=== PATIENT | male | born 1960 | race Caucasian/White ===

== ENCOUNTER 2016-10-21 08:11 | Day surgery (SDC) | payer OTHER ==
[~2016-10-21] VITALS: Ht 172.7 cm; Wt 70.0 kg
[~2016-10-21 08:11] MED LIST: CEFAZOLIN 1GM IVPB FOR OMNI 50 ML IV PRN; CYCL10TA2 PO; CYCL1DRO EACHEYE; DOXY100T PO; DOXY50CA PO; FENTANYL PF 100 MCG/2 ML VIAL. IV PRN; FERR-26 PO; IV RINGERS,LACTATED 1000ML 1,000 ML IV SCH; LIDOCAINE 1% 1 ML SYRINGE. ID PRN; LISI-334 PO; NAPR500T3 PO; ONDANSETRON PF 4 MG/2 ML VIAL. IV PRN; OXYC1TAB8 PO; PROCHLORPERAZINE 10 MG/2 ML VIAL. IV PRN; RANI150T6 PO; VENTOLIN HFA18 GM INH
--- NOTE | 2016-10-21 09:43 | DISCH ---
DISCHARGE INSTRUCTIONS Condition on Discharge Condition on Discharge: Stable Activity After Discharge Activity Instructions for Disc: Progressive ambulation, Other, see below Other activity instructions: protected weight bearing with brace and crutches Weight Bearing Status after Di: Partial weight bearing Diet after Discharge Diet after Discharge: Regular Wound Incision Care Wound/Incision Care: Ice to area for comfort, Keep wound elevated, Change dressing Other wound/incision instructi: Remove dressing 3 days may then shower Community/Resources/Services Services at Discharge: PT EVALUATE & TREAT Contacting the DROnur after DC Call your doctor for: Concerns you may have Follow-Up Follow up with: Karena 10-14 days Treatment/Equipment after DC Adaptive Equipment Issued: ITALIA Barth MD Oct 21, 2016 09:43
[2016-10-21] MEDS ORDERED: OXYC-244 PO (09:49)
[2016-10-21] MEDS ORDERED: FENTANYL PF 100 MCG/2 ML VIAL. ONE ×2 (09:54→10:53)
[2016-10-21] MEDS ORDERED: ROCURONIUM 50 MG/5 ML VIAL. ONE (09:54)
[2016-10-21] MEDS ORDERED: PROPOFOL 20 ML IV ONE (09:55)
[2016-10-21] MEDS ORDERED: LIDOCAINE 2% 100 MG/5 ML DISP.SYRIN. ONE (09:56)
[2016-10-21] MEDS ORDERED: DEXAMETHASONE SOD PHOS 20 MG/5 ML VIAL. ONE (09:56)
[2016-10-21] MEDS ORDERED: ONDANSETRON PF 4 MG/2 ML VIAL. ONE (09:56)
[2016-10-21] MEDS ORDERED: FAMOTIDINE 20 MG/2 ML VIAL ONE (09:56)
[2016-10-21] MEDS ORDERED: NEOSTIGMINE METHYLSULFATE 5 MG/5 ML SYRINGE. ONE (10:28)
[2016-10-21] MEDS ORDERED: GLYCOPYRROLATE 1 MG/5 ML VIAL. ONE (10:28)
[2016-10-21] MEDS ORDERED: EPHEDRINE PF IN SALINE 50 MG/5 ML DISP.SYRIN. IV ONE (10:42)
[2016-10-21] MEDS ORDERED: SEVOFLURANE > 120 MINUTES. IH ONE (12:01)
[2016-10-21] MEDS ORDERED: ACETAMINOPHEN INTRAVENOUS 100 ML IV ONE (12:07)
[2016-10-21] MEDS: FENTANYL PF 100 MCG/2 ML VIAL. IV PRN ×4 (14:15→14:43)
--- NOTE | 2016-10-21 14:43 | PDOC ---
BRIEF OPERATIVE NOTE Date: Oct 21, 2016 Pre-Op Diagnosis left knee lateral instability Post-Op Diagnosis same, LCL insufficient Procedure Performed left knee LCL reconstruction Surgeon Karena Anesthesia Type: General Blood Loss 75cc Findings above, fibular head fracture required rerouting graft Complications fibular head as above Additional Remarks stable fixation obtained with additional routing through tibia ITALIA WAHL MD Oct 21, 2016 14:43
[2016-10-21] MEDS: MORPHINE SULFATE 2 MG/ML DISP.SYRIN. IV PRN ×2 (14:57→15:06)
[2016-10-21] MEDS: HYDROMORPHONE 2 MG/ML VIAL. IV PRN ×3 (15:14→15:39)
[2016-10-21] MEDS ORDERED: OXYCODONE/APAP 7.5/325 TABLET. PO PRN (15:45)
[2016-10-21 16:50] VITALS: BP 132/73
--- NOTE | 2016-10-22 13:44 | OP ---
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 PROCEDURE: Left knee lateral collateral ligament allograft reconstruction. SURGEON: Jorge Alberto Thurston MD ANESTHESIA: General. ESTIMATED BLOOD LOSS: About 150 mL. COMPLICATIONS: Include some failure of the fibular head fixation as noted below. OPERATIVE INDICATIONS: The patient is about 10 months out from total knee arthroplasty, but has been having symptoms of instability with his knee and on examination noted to have significant lateral collateral ligament insufficiency. I talked to him about nonoperative alternatives of bracing and possible operative alternatives for reconstruction based on his young age, activity, etc. We had talked about the risks particularly of possible infection, nerve or blood vessel damage, recurrent instability, the risks specific to allograft and the typical postoperative course. All his questions were answered. Consent was obtained and he agrees to proceed with operative evaluation and treatment. DESCRIPTION OF PROCEDURE: The patient was identified, procedure verified, patient placed in the supine position on the operating table. After adequate amounts of general endotracheal anesthesia were administered, the thigh tourniquet was placed and the left lower extremity prepped and draped in standard sterile fashion. After timeout was performed, the patient and procedure identified and verified, the left lower extremity was examined under anesthesia and found to have significant isolated lateral collateral ligament laxity. He appeared to be stable in terms of posterior cruciate ligament evaluation and the posterolateral corner. Next, the extremity was exsanguinated by Esmarch bandage. Tourniquet inflated to 300 mmHg and an incision was made curvilinear over the lateral aspect of the knee. Iliotibial band was split and the teller lateral collateral ligament was identified and found to be actually intact, but significantly stretched and incompetence. The lateral epicondyle was visualized as was the superior aspect of the fibular head. Peroneal nerve was isolated and protected and first the teller insertion point on the lateral femoral epicondyle, but proximal and posterior, the teller LCL insertion point was located and a guidewire was placed through the knee. The tibialis donor tendon was then prepared and sized at a size 7 on a single leg and at a size 6 distally and about 6.5 centrally. I therefore filled the blind and a tunnel in the insertion point on the femur, 30 mm deep with a size 7 cannulated drill bit and the graft was docked and not tensioned immediately according to the technique of Dr. Vizcaino. A 6.5-mm tunnel was drilled with an ACL drill guide from about 8 mm posterior to the anterior aspect of the fibula, on the lateral aspect of the fibular head, anatomic insertion point of the lateral collateral ligament and the drill bit was placed. The guide was then placed posterosuperior for the desired 6.5-mm tunnel and the graft was passed anterior to posterior. Fixation occurred and was carried out in the fibular head with a 6-mm hydroxyapatite fixation screw, Castañeda [employer] and tensioning carried out on the femoral side with a 7 x 25-mm interference screw. Initially, there was some difficulty with femoral fixation, in that the interference screw apparently ran into a cystic area and did not provide adequate fixation that was later remedied by placing a larger tap up to 10 mm, upon which I judged the adequate fixation would occur and a 10 x 35 hydroxyapatite fixation screw was placed. Unfortunately, when stressing of the ligament to stability occurred, the bone and the fibular head gave way and lost fixation. Given that this was the most desired plan for fixation at the anatomic location, I elected to keep the insertion point the same, but actually obtained supplementary fixation through the tibia. A small anterior incision was made and subperiosteal dissection carried out and drill hole, 7 mm in diameter, was carried through the lateral aspect of the tibia and connected with an anterior drill hole. Again, 7 mm parallelly along and not contacting the knee implant. A Kandis suture passer was used to place the graft, which had to be undone from its femoral attachment and whip stitching reaccomplished with #5 Ethibond suture. The interference screw was taken out and preserved as it was in good condition from the femoral side and the graft again was temporary docked into the femoral side, passed through the anatomic insertion point, in the fibular head through the tibia and brought around from anteriorly on the tunnel. Excellent fixation was noted at the femoral side and backup fixation obtained with both sutures tied over and Endobutton at the cortex medially and re-tensioning occurred with the knee held in valgus through the tibial tunnel and fixation occurred at the anterior aspect of that tibial tunnel. Graft was brought along subperiosteally and was used to reinforce the existing tissue and the anatomic lateral collateral ligament limb. This was reinforced with #5 Ethibond incorporating the teller ligament for additional tissue. Excellent stability was retained. Knee motion was unconstrained. Thorough irrigation carried out with normal saline solution. Closure of the iliotibial band carried out with #1 Vicryl suture, subcutaneous closure with buried Vicryl suture, skin closure with subcuticular Monocryl, Steri-Strips and Mastisol. Sterile dressings were applied. The patient was placed in a postoperative brace currently locked in full extension, but allowing 90 degrees of flexion and was returned to recovery room in stable condition having tolerated the procedure well. Postoperatively, peroneal nerve was noted to be intact from sensory and motor standpoint. JORGE ALBERTO THURSTON MD DR: HUI/nts JOB#: [id number] / [id number]
== END 2016-10-21 17:00 | disposition home or self-care (01) ==
LOC: SURG 08:11
PROVIDERS: ATTEND Orthopaedic Surgery
DX: M25.362 Other instability, left knee (principal); M06.9 Rheumatoid arthritis, unspecified; I10 Essential (primary) hypertension; K21.9 Gastro-esophageal reflux disease without esophagitis; Z96.659 Presence of unspecified artificial knee joint
CPT/HCPCS: 27427; C1713; C1762; J0131; J0690; J1100; J1170; J2270; J2405; J2704; J2710; J3010; J3490; S0028